=== PATIENT | female | born 1960 | race African-American/Black ===

== ENCOUNTER 2020-10-17 16:41 | Emergency (ER) | payer OTHER ==
[~2020-10-17] VITALS: Ht 165.1 cm; Wt 102.1 kg
[2020-10-17 16:44] VITALS: BP 142/99
[2020-10-17] MEDS ORDERED: METOCLOPRAMIDE 10 MG TAB PO ONE (17:45)
[2020-10-17] MEDS ORDERED: LOPERAMIDE 2 MG CAP PO ONE (17:45)
[2020-10-17 18:02] LABS: BASOPHILS % (AUTO) 0.3 % (0.0-2.0); EOSINOPHILS # (AUTO) 0.3 K/uL (0-0.4); EOSINOPHILS % (AUTO) 4.4 % (0.0-4.0); HEMATOCRIT 42.2 % (36-48); HEMOGLOBIN 13.8 g/dL (12.0-16.0); LYMPHOCYTES # (AUTO) 0.8 K/uL (2.5-16.5); LYMPHOCYTES % (AUTO) 12.8 % (20.5-51.1); MEAN CORPUSCULAR HEMOGLOBIN 28 pg (27-31); MEAN CORPUSCULAR HGB CONC 33 g/dL (33-37); MEAN CORPUSCULAR VOLUME 84.3 fL (80-94); MONOCYTES # (AUTO) 0.4 K/uL (0.8-1.0); MONOCYTES % (AUTO) 5.8 % (1.7-9.3); NEUTROPHILS # (AUTO) 4.8 K/uL (1.8-7.7); NEUTROPHILS % (AUTO) 76.7 % (42.2-75.2); PLATELET COUNT (AUTO) 245 K/uL (140-450); RED BLOOD CELL COUNT(AUTO) 5.01 MIL/uL (4.20-5.40); RED CELL DISTRIBUTION WIDTH 14.2 % (11.6-13.7); WHITE BLOOD COUNT (AUTO) 6.2 K/uL (4.8-10.8)
[2020-10-17 18:21] LABS: ALBUMIN 3.8 g/dL (3.4-5.0); ANION GAP 14.2 (8-16); CARBON DIOXIDE 29.3 mmol/L (21-32); CREATININE 0.9 mg/dL (0.6-1.3); POTASSIUM 4.5 mmol/L (3.5-5.1); TOTAL BILIRUBIN 1.2 mg/dL (0.0-1.0)
[2020-10-17 18:21] LABS: APPEARANCE,URINE CLEAR (CLEAR); BILIRUBIN,URINE NEGATIVE (NEGATIVE); BLOOD, URINE TRACE-I (NEGATIVE); COLOR,URINE YELLOW (YELLOW); LEUKOCYTE ESTERASE ,URINE 1+ (NEGATIVE); NITRITE, URINE NEGATIVE (NEGATIVE); UGLUCOSE NEGATIVE (NEGATIVE)
[2020-10-17 18:59] LABS: RBC,URINE 0-5 /HPF (0-5)
[2020-10-17 19:25] VITALS: BP 142/99
== END 2020-10-17 19:25 | disposition left against medical advice (07) ==
LOC: MED 16:41
DX: R19.7 Diarrhea, unspecified (principal); R10.9 Unspecified abdominal pain; R63.0 Anorexia; I10 Essential (primary) hypertension
CPT/HCPCS: 36415; 80053; 81001; 85025; 87086; 99283; J8597

== ENCOUNTER 2023-12-01 14:15 | Emergency (ER) | payer OTHER ==
[~2023-12-01] VITALS: Ht 162.6 cm; Wt 103.0 kg
[2023-12-01 14:21] VITALS: BP 141/80; PULSE 88; RESP 18; TEMP 97.2; O2SAT 97
[2023-12-01] MEDS: ONDANSETRON 4 MG ODT PO ONE (14:40)
[2023-12-01] MEDS: ACETAMINOPHEN EXTRA STRENGTH 500 MG TAB PO ONE (14:40)
[2023-12-01] MEDS ORDERED: ACETAMINOPHEN EXTRA STRENGTH 500 MG TAB ONE (15:59)
[2023-12-01] MEDS ORDERED: ONDANSETRON 4 MG ODT ONE (15:59)
[2023-12-01] MEDS ORDERED: ONDA-188 SL (16:12)
[2023-12-01] MEDS ORDERED: IBUP-2213 PO (16:12)
[2023-12-01 16:39] VITALS: BP 134/78; PULSE 83; RESP 16; TEMP 98.4; O2SAT 98
== END 2023-12-01 16:40 | disposition home or self-care (01) ==
LOC: MED 14:15
DX: S06.0X0A Concussion without loss of consciousness, initial encounter (principal); I10 Essential (primary) hypertension; Z79.1 Long term (current) use of non-steroidal anti-inflammatories (NSAID); W22.03XA Walked into furniture, initial encounter; Y93.01 Activity, walking, marching and hiking; Y92.59 Other trade areas as the place of occurrence of the external cause; Y99.8 Other external cause status
CPT/HCPCS: 70450; 93005; 99284; Q0162

== ENCOUNTER 2024-01-16 17:23 | Emergency (ER) | payer OTHER ==
[~2024-01-16] VITALS: Ht 162.6 cm; Wt 95.3 kg
[~2024-01-16 17:23] MED LIST: IBUP-2213 PO; ONDA-188 SL
[2024-01-16 17:59] VITALS: BP 155/84; PULSE 85; RESP 16; TEMP 98; O2SAT 99
[2024-01-16] MEDS ORDERED: IBUP-2213 PO (20:08)
[2024-01-16] MEDS ORDERED: ACET-8905 PO (20:08)
[2024-01-16 20:14] VITALS: BP 150/84; PULSE 86; RESP 16; TEMP 97.5; O2SAT 99
== END 2024-01-16 20:14 | disposition home or self-care (01) ==
LOC: MED 17:23
DX: S13.4XXA Sprain of ligaments of cervical spine, initial encounter (principal); M54.50 Low back pain, unspecified; R10.84 Generalized abdominal pain; E11.9 Type 2 diabetes mellitus without complications; I10 Essential (primary) hypertension; Z79.4 Long term (current) use of insulin; Z79.899 Other long term (current) drug therapy; Z98.890 Other specified postprocedural states; V49.88XA Car occupant (driver) (passenger) injured in other specified transport accidents, initial encounter; Y93.89 Activity, other specified; Y92.89 Other specified places as the place of occurrence of the external cause; Y99.8 Other external cause status
CPT/HCPCS: 99283